=== PATIENT | female | born 1950 | race Caucasian/White ===

== ENCOUNTER 2019-04-01 10:00 | Outpatient (CLI) | payer MEDICARE, BC, SELFPAY ==
--- NOTE | 2019-04-01 08:51 | DI.RAD_ITS ---
EXAM: XR HIP PELVIS ADULT BL INDICATION: b/l hip pain. COMPARISON: No exams were available for comparison TECHNIQUE: 2D digital imaging was performed. FINDINGS: There is mild bilateral hip joint space narrowing and minimal periarticular spurring. The femoral h servando appear intact. There is mild spurring at the inferior SI joints. IMPRESSION: Mild degenerative changes.
== END 2019-04-01 10:20 ==
PROVIDERS: PCP Family Medicine; Referring Provider Family Medicine; Visit Provider Student in an Organized Health Care Education/Training Program
DX: M25.551 Pain in right hip (principal); M25.552 Pain in left hip; M16.0 Bilateral primary osteoarthritis of hip
CPT/HCPCS: 73521; 99203